=== PATIENT | male | born 1950 | race Caucasian/White ===

== ENCOUNTER → 2016-12-05 | Day surgery (SDC) | payer MEDICARE, OTHER ==
[~2016-12-05] VITALS: Ht 177.8 cm; Wt 90.4 kg
[~2016-12-05] MED LIST: ACETAMINOPHEN 1000 MG/100 ML VIAL IV ONE; ACETAMINOPHEN/HYDROcodone 325 MG/5 MG TAB PO PRN; BUPIVACAINE HCL PF 0.5% 30 ML VIAL ONE; CEPH-460 PO; CLON0.1T PO; DEXAMETHASONE SOD PHOS 4 MG/ML VIAL ONE; DO NOT ADM ANY ANTICOAGULANT DRUGS XX PRN; FAMOTIDINE 20 MG/2 ML VIAL ONE; IMIT25TA PO; INSULIN HUMAN REGULAR 1,000 UNITS/10 ML VIAL SQ PRN; LACTATED RINGER'S 1000 ML INJ 1,000 ML IV ONE; LACTATED RINGER'S 1000 ML IV SCH; LIDOCAINE HCL 2% 50 ML VIAL ONE; MEPERIDINE HCL 50 MG/ML VIAL IM PRN; METOPROLOL TARTRATE 25 MG TAB PO PRN; MIDAZOLAM HCL 2 MG/2 ML VIAL ONE; MULTTAB67 PO; NEOMYCIN/POLYMYXIN 1 ML G.U. IRRIGANT IR ONE; NORC5TAB PO; ONDANSETRON HCL 4 MG/2 ML VIAL ONE; PROPOFOL 200 MG/20 ML AMP IV ONE; SODIUM CHLORID 0.9% 500 ML IV SCH; VERA40TA PO; ZYRT10CA PO; ceFAZolin 1,000 MG/NS 100 ML IV SCH; fentaNYL CITRATE 250 MCG/5 ML AMP ONE
[2016-12-05 09:57] LABS: BASOPHIL # 0.1 TH/MM3 (0-0.2); BASOPHIL % 1.2 % (0.0-2.0); EOSINOPHIL # 0.5 TH/MM3 (0-0.4); EOSINOPHIL % 5.4 % (0.0-4.0); HEMATOCRIT 42.8 % (39.0-51.0); HEMO FLAGS DIFF FINAL; LYMPH % 23.3 % (9.0-44.0); MEAN CELL VOLUME 93.4 FL (80.0-100.0); MEAN CORPUSCULAR HEMOGLOBIN 32.1 PG (27.0-34.0); MEAN CORPUSCULAR HGB CONC 34.4 % (32.0-36.0); MONO % 10.9 % (0.0-8.0); NEUT % 59.2 % (16.0-70.0); PLATELET COUNT 274 TH/MM3 (150-450); RED BLOOD COUNT 4.58 MIL/MM3 (4.50-5.90); RED CELL DISTRIBUTION WIDTH 13.4 % (11.6-17.2); WHITE BLOOD COUNT 8.4 TH/MM3 (4.0-11.0)
[2016-12-05 10:01] VITALS: BP 117/83; PULSE 90; RESP 18; TEMP 98; O2SAT 96
--- NOTE | 2016-12-05 11:20 | HHI.PR ---
Immediate Post Op Note Procedure Date: Dec 05, 2016 Pre Op Diagnosis: (1) Contracture of palmar fascia (Dupuytren's) Post Op Diagnosis: Surgeon: Ranulfo Drummond III General Helper(s): TEODORA Procedure: Left 4th and 5th palmar fasciectomies Complications: none Specimen(s) removed: palmar fascia left 4th and 5th rays of the hand Anesthesia: General, Local Drains: Yadira IVF Tourniquet time (min at mmHg) 44min at 200mm Hg Patient to: PACU Patient Condition: Good Ranulfo Drummond III, MD Dec 05, 2016 11:20
[2016-12-05 13:40] VITALS: BP 142/93; PULSE 71; RESP 16; TEMP 97.5; O2SAT 99
--- NOTE | 2016-12-06 06:46 | EKG ---
Date Performed: 12/05/2016 Time Performed: 09:59:11 PTAGE: 66 years EKG: Sinus rhythm NONSPECIFIC T-WAVE ABNORMALITY BORDERLINE ECG PREVIOUS TRACING : 01/13/2014 08.11 Compared to prior tracing no significant change DOCTOR: Noel Pratt Interpretating Date/Time 12/06/2016 06:43:57
--- NOTE | 2016-12-08 07:10 | MP ---
cc: RANULFO DRUMMOND III, M.D. DATE OF SURGERY: 12/05/2016 PREOPERATIVE DIAGNOSIS Left fourth and fifth Dupuytren's contracture. POSTOPERATIVE DIAGNOSIS Left fourth and fifth Dupuytren's contracture. PROCEDURE Palmar fasciectomy left fourth and fifth rays of the hand. SURGEON Ranulfo Drummond III, MD DETAILS OF PROCEDURE The patient was brought to the operating room and placed supine on the operating table. After the correct site and side of surgery were verified by members of each team in the room multiple times including the patient and myself and after adequate preoperative markings and preoperative written consent were verified by everyone and after adequate general anesthesia had been achieved, the left upper extremity was prepped and draped in traditional sterile surgical fashion. A subcutaneous block of a 50/50 mixture of 2% plain lidocaine and 0.5% plain Marcaine was infiltrated in the skin and subcutaneous tissue in the areas of the planned incisions which were diagrammed. The limb was exsanguinated with an Etienne wrap and a highly placed well-padded axillary tourniquet was inflated to 200 mmHg for a total of 44 minutes. Angled incisions with the angles concentrated over flexion creases in the palm were made over the cords of the fourth and fifth rays. Both blunt and sharp dissection were used to dissect the very dense scar tissue from the skin and subcutaneous tissue of the palm. The neurovascular structures were identified early and protected the entire time and were in continuity through the end of the case without any evidence of injury. The palmar fascia of the fourth ray went to the MP joint and the palmar fascia of the fifth ray went from the base of the palm all the way to the PIP joint. This was all excised in its entirety and passed off the field as specimens. The neurovascular structures were examined individually and found to be non-compromised. Full extension of the fingers was easy and possible. The axillary tourniquet was released after 44 total minutes and the hand and all the fingers became immediately soft, pink and warm and had brisk capillary refill of less than two seconds. There was no obvious active bleeding. Some small subcutaneous bleeders were easily controlled with bipolar electrocautery. The skin edges were closed using Z-plasties where needed and using interrupted and running 4-0 nylon sutures. The hand and arm were thoroughly cleansed and dried. A small 1/4 inch Yadira drain was placed deep to the skin. Betadine and Adaptic dressing followed by bulky soft dressing keeping all the fingers extended was made, and a volar extension splint was made in the usual fashion keeping all the fingers extended leaving only the thumb free. The patient was awakened from anesthesia and transported to the post-anesthesia care unit awake and in stable condition at the end of the case. Sponge, needle and instrument counts were correct at the end of the case as reported by the nurses in the room. MD HERVE Bueno III/NICHOLAS /1:15 PM /7:02 AM
== END | disposition home or self-care (01) ==
LOC: HSDC 09:12
PROVIDERS: ATTEND Orthopaedic Surgery Hand Surgery
DX: M72.0 Palmar fascial fibromatosis [Dupuytren] (principal); R94.31 Abnormal electrocardiogram [ECG] [EKG]
CPT/HCPCS: 01810; 26123; 26125; 85025; 88304; 93005; J0131; J0690; J1100; J2250; J2405; J3010; J7120; 88305